=== PATIENT | male | born 1970 | race African-American/Black ===

== ENCOUNTER 2018-05-10 09:55 | Emergency (ER) | payer SELFPAY ==
[2018-05-10] MEDS ORDERED: ONDANSETRON HCL INJ/PF 4 MG/2 ML SDV IV ONE (10:17)
[2018-05-10] MEDS ORDERED: NORMAL SALINE 1000 ML 1,000 ML IV ONE (10:17)
[2018-05-10] MEDS ORDERED: FENTANYL CITRATE INJ/PF 100 MCG/2 ML AMPUL IV ONE (10:17)
[2018-05-10] MEDS ORDERED: KETOROLAC TROMETHAMINE INJ/PF 30 MG/1 ML SDV IV ONE (10:17)
[2018-05-10] MEDS ORDERED: CLONIDINE HCL 0.2 MG TABLET PO ONE (10:19)
--- NOTE | 2018-05-10 10:20 | ER Document Report ---
ED Medical Screen (RME) - General Chief Complaint: Abdominal Pain Stated Complaint: STOMACH PAIN Time Seen by Provider: 05/10/18 10:17 Notes: 48 years old male presents today with elevated blood pressure, left lower quadrant abdominal pain for the last few days, hematuria and lower GI bleed. This morning the pain over the left lower quadrant has increased in intensity. He also had hematuria for the last few days, awaiting urology appointment. Denies any fever chills but nauseous. Denies any other constitutional symptoms. Sharp tenderness over the left lower quadrant. TRAVEL OUTSIDE OF THE [place] IN LAST 30 DAYS: No - Related Data Allergies/Adverse Reactions: No Known Allergies Allergy (Unverified 05/10/18 09:56) Past Medical History - Social History Chew tobacco use (# tins/day): No Frequency of alcohol use: None Drug Abuse: None Renal/ Medical History: Denies: Hx Peritoneal Dialysis Physical Exam - Vital signs Vitals: Temp Pulse Resp BP Pulse Ox 98.0 F 69 18 177/108 H 98 05/10/18 09:57 05/10/18 09:57 05/10/18 09:57 05/10/18 09:57 05/10/18 09:57 Course - Vital Signs Vital signs: Temp Pulse Resp BP Pulse Ox 98.0 F 69 18 177/108 H 98 05/10/18 09:57 05/10/18 09:57 05/10/18 10:14 05/10/18 09:57 05/10/18 09:57 Doctor's Discharge - Discharge Referrals: DALIA MARTINEZ MD [Primary Care Provider] - Follow up as needed
[2018-05-10 10:47] LABS: APPEARANCE,URINE CLEAR; BILIRUBIN,URINE NEGATIVE (NEGATIVE); COLOR,URINE YELLOW; GLUCOSE, URINE NEGATIVE (NEGATIVE); KETONES,URINE NEGATIVE (NEGATIVE); LEUKOCYTE ESTERASE,URINE NEGATIVE (NEGATIVE); NITRITE,URINE NEGATIVE (NEGATIVE); PROTEIN,URINE NEGATIVE (NEGATIVE); URINE SPECIFIC GRAVITY 1.014; UROBILINOGEN,URINE NEGATIVE mg/dL (<2.0)
[2018-05-10 11:55] LABS: ABSOLUTE BASOPHILS # (AUTO) 0.1 10^3/uL (0.0-0.2); ABSOLUTE EOSINOPHILS # (AUTO) 0.3 10^3/uL (0.0-0.6); ABSOLUTE LYMPHOCYTES (AUTO) 1.3 10^3/uL (0.5-4.7); ABSOLUTE MONOCYTES (AUTO) 0.8 10^3/uL (0.1-1.4); ABSOLUTE NEUT (AUTO) 12.1 10^3/uL (1.7-8.2); BASOPHILS % (AUTO) 0.8 % (0-2); EOSINOPHILS % (AUTO) 1.9 % (0-6); HEMOGLOBIN 15.2 g/dL (13.5-17.0); LYMPHOCYTES % (AUTO) 8.8 % (13-45); MEAN CORPUSCULAR HEMOGLOBIN 26.7 pg (27.0-33.4); MEAN CORPUSCULAR HGB CONC 33.7 g/dL (32.0-36.0); MEAN CORPUSCULAR VOLUME 79 fl (80-97); MONOCYTES % (AUTO) 5.8 % (3-13); PLATELET COUNT 145 10^3/uL (150-450); RED BLOOD COUNT 5.69 10^6/uL (4.35-5.55); RED CELL DISTRIBUTION WIDTH 13.4 % (11.5-14.0); SEGMENTED NEUTROPHILS % (AUTO) 82.7 % (42-78); TOTAL CELLS COUNTED % (AUTO) 100 %; WHITE BLOOD COUNT 14.6 10^3/uL (4.0-10.5)
[2018-05-10 12:01] LABS: ALANINE AMINOTRANSFERASE 59 U/L (21-72); ALKALINE PHOSPHATASE 100 U/L (38-126); ANION GAP 13 (5-19); ASPARTATE AMINO TRANSFERASE 36 U/L (17-59); BILIRUBIN,DIRECT 0.3 mg/dL (0.0-0.4); BILIRUBIN,TOTAL 0.5 mg/dL (0.2-1.3); BLOOD UREA NITROGEN 16 mg/dL (7-20); CARBON DIOXIDE 29 mmol/L (22-30); CHLORIDE 101 mmol/L (98-107); GLUCOSE 114 mg/dL (75-110); LIPASE 196.7 U/L (23-300); POTASSIUM 4.2 mmol/L (3.6-5.0); SODIUM 143.3 mmol/L (137-145)
--- NOTE | 2018-05-10 13:42 | RADIOLOGY REPORT (SQ) ---
EXAM DESCRIPTION: CT ABD/PELVIS WITH IV ORAL COMPLETED DATE/TIME: 05/10/2018 1:19 pm REASON FOR STUDY: Lower GI bleed .LLQpain r/o diverticular abscess. COMPARISON: None. TECHNIQUE: CT scan of the abdomen and pelvis performed with intravenous and oral contrast using aziza aleks scanning technique with dynamic intravenous contrast injection. Images reviewed with lung, soft t issue, and bone windows. Reconstructed coronal and sagittal MPR images reviewed. Delayed images for e valuation of the urinary system also acquired. All images stored on PACS. All CT scanners at this facility use dose modulation, iterative reconstruction, and/or weight based d osing when appropriate to reduce radiation dose to as low as reasonably achievable (ALARA). [facility]: Dose Right [facility]: CareDose [facility]: Dose Right [facility]: Teradose 4D [facility]: Red Zebra CONTRAST TYPE AND DOSE: contrast/concentration: Isovue 350.00 mg/ml; Total Contrast Delivered: 75.0 ml; Total Saline Delivered: 55.0 ml RENAL FUNCTION: Creatinine 1.27 RADIATION DOSE: CT Rad equipment meets quality standard of care and radiation dose reduction techniq ues were employed. CTDIvol: 10.6 - 12.4 mGy. DLP: 1339 mGy-cm. . LIMITATIONS: None. FINDINGS: LOWER CHEST: No significant findings. No nodules or infiltrates. LIVER: Normal size. No masses. No dilated ducts. There is fatty infiltration of the liver. SPLEEN: Normal size. No focal lesions. PANCREAS: No masses. No significant calcifications. No adjacent inflammation or peripancreatic fluid collections. Pancreatic duct not dilated. GALLBLADDER: No identified stones by CT criteria. No inflammatory changes to suggest cholecystitis. ADRENAL GLANDS: No significant masses or asymmetry. RIGHT KIDNEY AND URETER: No solid masses. No significant calcifications. No hydronephrosis or hyd roureter. LEFT KIDNEY AND URETER: No solid masses. No significant calcifications. No hydronephrosis or hydr oureter. AORTA AND VESSELS: No aneurysm. No dissection. Renal arteries, SMA, celiac without stenosis. RETROPERITONEUM: No retroperitoneal adenopathy, hemorrhage or masses. BOWEL AND PERITONEAL CAVITY: No obstruction. No visualized masses. No free fluid. No inflammatory ch anges or thickening of bowel wall. APPENDIX: Normal. PELVIS: No significant masses. Normal bladder. No free fluid. ABDOMINAL WALL: No masses. No hernias. BONES: No significant or acute findings. OTHER: No other significant finding. IMPRESSION: NO SIGNIFICANT OR ACUTE FINDINGS IN THE ABDOMEN OR PELVIS. TECHNICAL DOCUMENTATION: JOB ID: [id number] Quality ID # [id number]: Final reports with documentation of one or more dose reduction techniques (e.g., Au tomated exposure control, adjustment of the mA and/or kV according to patient size, use of iterative reconstruction technique) 2010 [employer]- All Rights Reserved Reading location - IP/workstation name: [email or web address]
--- NOTE | 2018-05-10 14:27 | ER Document Report ---
ED GI/ - General Chief Complaint: Abdominal Pain Stated Complaint: STOMACH PAIN Time Seen by Provider: 05/10/18 10:17 Notes: Patient says he was awakened about 4:30 AM this morning with a very sharp pain in his left lower quadrant. He is never had this pain before. Patient says he was having severe pain when he arrived at the emergency department, but the pain resolved after he was given medications (Toradol and fentanyl IV) No history of kidney stones. Patient has had some blood in his stools and blood in his urine over the last couple of months. He has seen his primary care provider who is getting him referred to specialist to evaluate this blood. Patient says he has an appointment to see both a urologist and a intake clinician in May. No history of hemorrhoids. Denies any nausea or vomiting. Denies any fevers. TRAVEL OUTSIDE OF THE [place] IN LAST 30 DAYS: No - Related Data Allergies/Adverse Reactions: No Known Allergies Allergy (Unverified 05/10/18 09:56) Past Medical History - Social History Smoking Status: Current Every Day Smoker - 1 pack/day Chew tobacco use (# tins/day): No Frequency of alcohol use: None Drug Abuse: None Family History: Reviewed & Not Pertinent Patient has suicidal ideation: No Patient has homicidal ideation: No - Past Medical History Cardiac Medical History: Reports: Hx Hypertension - Currently not taking any medications but being followed by his primary care Review of Systems - Review of Systems Notes: REVIEW OF SYSTEMS: CONSTITUTIONAL : Denies fever. EENT: Denies eye, ear, nose or mouth or throat pain or other symptoms. CARDIOVASCULAR: Denies chest pain. RESPIRATORY: Denies cough, chest congestion, or shortness of breath. GASTROINTESTINAL: See HPI. GENITOURINARY: Denies difficulty or painful urinating, urinary frequency,. Having blood in urine which primary care provider is working up. MUSCULOSKELETAL: Denies back or neck pain. Denies joint pain or swelling. SKIN: Denies rash or skin lesions. NEUROLOGICAL: Denies LOC or altered mental status. Denies headache. Denies sensory loss or motor deficits. ALL OTHER SYSTEMS REVIEWED AND NEGATIVE. Physical Exam - Vital signs Vitals: Temp Pulse Resp BP Pulse Ox 98.0 F 69 18 177/108 H 98 05/10/18 09:57 05/10/18 09:57 05/10/18 09:57 05/10/18 09:57 05/10/18 09:57 Interpretation: Hypertensive - Mild Notes: PHYSICAL EXAMINATION: GENERAL: Well-appearing, in no acute distress. Patient says he was having a lot of pain when he came in to triage, and I do not see him at that time. HEAD: Atraumatic, normocephalic. EYES: Pupils equal round and reactive to light, extraocular movements intact. ENT: oropharynx clear without exudates. Moist mucous membranes. NECK: Normal range of motion, supple. LUNGS: Breath sounds clear and equal bilaterally. HEART: Regular rate and rhythm without murmurs. ABDOMEN: Soft, tender to deep palpation in the left lower quadrant, but no guarding or rebound. No masses. BACK: No tenderness throughout entire back. EXTREMITIES: Normal range of motion without pain. NEUROLOGICAL: Normal speech, normal gait. Normal sensory, motor, and reflex exams. Awake, alert, and oriented x3. Cranial nerves normal. PSYCH: Normal mood, normal affect. SKIN: Warm, dry, no rashes. Course - Re-evaluation Re-evalutation: 05/10/18 18:47 Patient's WBC is 14,600 but otherwise, patient's labs are all essentially normal. His CT scan is completely negative. I do not know if he may have had a small stone that was passing that has now passed and is no longer showing up on CT nor is it producing any blood in the urine. Patient's urine had 1 red cell and dipstick positive for blood and that is all. No evidence of any infection there. Even though his scan appears normal, there are occasions when it is not accurate and I am going to treat this patient with Flagyl and Cipro on the possibility that he may have an undetected colitis present. Patient was advised to follow-up with his primary care regarding his blood pressure and treatment of it. Keep his appointment with the 2 specialist that he has for May. - Vital Signs Vital signs: Temp Pulse Resp BP Pulse Ox 97.9 F 62 18 118/67 98 05/10/18 14:33 05/10/18 14:33 05/10/18 14:33 05/10/18 14:33 05/10/18 14:33 - Laboratory Result Diagrams: 05/10/18 10:30 05/10/18 10:30 Laboratory results interpreted by me: 1205/10/18 05/10/18 10:30 10:30 10:30 WBC 14.6 H RBC 5.69 H MCV 79 L MCH 26.7 L Plt Count 145 L Seg Neutrophils % 82.7 H Lymphocytes % 8.8 L Absolute Neutrophils 12.1 H Creatinine 1.27 H Glucose 114 H Urine Blood MODERATE H Discharge - Discharge Clinical Impression: Left lower quadrant abdominal pain of unknown etiology, Hypertension Condition: Stable Disposition: HOME, SELF-CARE Additional Instructions: ABDOMINAL PAIN: There are many causes of abdominal pain. Pain can mean a serious problem requiring surgery (such as appendicitis). It can also be an innocent problem that goes away on its own (such as a viral infection). Often, time must pass to determine the cause of pain. The physician does not feel that hospitalization is necessary, at present. Things may change within the next 24 hours. Call the doctor or come back for re- examination if any problems occur, such as: (1) Pain that becomes more severe, steady, or becomes concentrated in one specific area. Also, pain that is more severe with movement or coughing. (2) Vomiting that persists or becomes more frequent. (3) Blood in the vomitus, urine, or bowel movements. Blood in the stool may have a tarry or black appearance. (4) Shaking chills or fever greater than 100 degrees F. (5) The abdomen becomes more distended or swollen. (6) Bowel movements cease. (7) Failure to improve as expected. Leukocytosis Leukocytosis is an elevation or increase in the number of white blood cells. Nearly all leukocytosis is due to one type of white blood cell, the polymorphonuclear leukocyte (PMN). These conditions are more accurately referred to as neutrophilia. The most common and important cause of neutrophilia is infection, and most infections cause neutrophilia. The degree of elevation often indicates the severity of the infection. Tissue damage from other causes raises the white count for similar reasons. [place], infarction (cutting off the blood supply to a region of the body so that it dies), crush injuries, inflammatory diseases, poisonings, and severe diseases, like kidney failure and diabetic ketoacidosis, all cause neutrophilia. Counts almost as high occur in leukemoid (leukemia-like) reactions caused by infection and non-infectious inflammation. Drugs can also cause leukocytosis. Cortisone-like drugs prednisone, lithium , and NSAIDs are the most common offenders. Non-specific stresses also cause white blood cells to increase in the blood. Extensive testing of medical students reveals that neutrophilia accompanies every examination. Vigorous exercise and intense excitement also cause elevated white blood cell counts. Except for your slightly elevated white cell count, called leukocytosis, you have a NORMAL EXAM AND WORKUP: At this time, your examination and workup show no significant abnormality. No significant abnormal physical findings are noted. All laboratory, EKG, and imaging (x-ray, CT scans, ultrasound) studies that were ordered show no significant abnormality. Although your examination and all studies that were ordered showed no significant abnormal finding, there are no examinations and no studies that are 100% accurate. There is always the possibility that some abnormality could exist and not be detected with physical examination or within the limits and capabilities of laboratory and other studies. You should return or follow up as you were instructed on your visit today for further evaluation if your symptoms do not resolve. TORADOL INJECTION: You have been given an injection of ketorolac tromethamine (Toradol). This is an excellent, safe drug for pain control. It also has potent antiinflammatory action. You should have significant pain relief within about one hour. Toradol is not addicting and is non-sedating. It does not interfere with driving or work. Call or return if you develop itching, hives, shortness of breath, or rash. PAIN MEDICATION INJECTION: You have received an injection of a pain medication. You should experience significant pain relief within 45 minutes. This drug is a narcotic - - it will impair your judgement, slow your reaction time and make you sleepy ( as well as relieve your pain). Narcotics also can cause nausea. You should not drive, work with machinery, or perform any task requiring mental alertness until all effects of the medication are gone -- six to eight hours. Do not take any alcohol, or sedatives, and do not take any other medication without checking with your physician. ANTINAUSEA MEDICATION: You have been given a medication to suppress nausea and vomiting. This type of medication can be given as a shot, pill, or suppository. It will usually last for many hours. Pills and shots usually last six to eight hours, suppositories last about 12 hours. For the typical illness, only one or two doses of the medication may be necessary. Mild lightheadedness may occur. This type of medicine can cause drowsiness. Do not drive or operate dangerous machinery while under its influence. Do not mix with alcohol. See your doctor at once if you have muscle spasms or tightness, or uncontrollable motions (particularly of the neck, mouth, or jaw). Persistent vomiting or severe lightheadedness should also be evaluated by the physician. ORAL NARCOTIC MEDICATION: You have been given a prescription for pain control. This medication is a narcotic. It's best taken with food, as nausea can result if taken on an empty stomach. Don't operate machinery or drive within six hours of taking this medication. Do not combine this medicine with alcohol, or with any medication which can cause sedation (such as cold tablets or sleeping pills) unless you get permission from the physician. Narcotics tend to cause constipation. If possible, drink plenty of fluids and eat a diet high in fiber and fruits. Please be aware that prescription narcotics also have the potential for abuse. People become addicted to these medications because of the general sense of wellbeing that they induce. This feeling along with a significant reduction in tension, anxiety, and aggression provides a stimulating seductive quality to these drugs. Once your pain is under control, we encourage you to discard your unused narcotics. You may have colitis, Nonspecific Colitis is an inflammatory disease of the large intestine which affects the lining of the bowel. The cause is uncertain, though it is often caused by an infection. In some cases, the symptoms resolve and can return again in the future. Colitis is characterized by abdominal pain, often nausea and vomiting, and either diarrhea or difficulty with bowel movements. Sometimes blood will be present in the bowel movements. Fever is often present as well. Milder cases of colitis can be managed as an outpatient with medications for nausea and vomiting and pain, oral fluid therapy, and perhaps antibiotics, if a bacterial origin is suspected. Antidiarrhea medicine should usually be avoided in colitis. If you have increasing abdominal pain, repeated vomiting, fever, rectal bleeding, or worsening diarrhea, you should return for re-evaluation. Ciprofloxacin You have been given an antibacterial agent, ciprofloxacin (Cipro). This medicine is not related to the penicillins, sulfas, cephalosporins, or tetracyclines. It is often given to patients who are allergic to these drugs. It has been chosen for you either because other drugs are not appropriate, or because of the nature of your problem. Cipro should not be taken with antacids, as these can decrease its effectiveness. It can be taken without regard to meals. CIPRO SHOULD NOT BE TAKEN BY CHILDREN, NURSING WOMEN, OR WOMEN. Although Cipro is usually well-tolerated, common side effects can include nausea and diarrhea. Contact your doctor if you experience any unusual symptoms while on this medication, such as joint pain or swelling, shortness of breath, wheezing, faintness, or hives. Metronidazole Metronidazole (Flagyl) has been prescribed. This medication is used to kill a type of bacteria called anaerobes, and protozoan parasites such as trichomonas and Giardia. Flagyl often causes a metallic taste in the mouth and mild nausea. Do not use alcohol in any form with Flagyl (including alcohol in medication elixirs). Flagyl interacts with alcohol to cause flushing, palpitations, headache, stomach cramps, and vomiting. Do not use Flagyl if you are taking Antabuse (disulfiram). Call the doctor at once if you develop rash, shortness of breath, itching, or lightheadedness. FOLLOW-UP CARE: If you have been referred to a physician for follow-up care, call the physician s office for an appointment as you were instructed or within the next two days. If you experience worsening or a significant change in your symptoms, notify the physician immediately or return to the Emergency Department at any time for re-evaluation. Continue to see your primary care provider at [facility] to monitor and treat her blood pressure. Make sure you keep your appointment to see the intake clinician and urologist in May, as scheduled, about the blood in your stools and blood in your urine Return if you have new or worsening symptoms., Such as worsening pain, fever, etc. Prescriptions: Ciprofloxacin HCl [Cipro 500 mg Tablet] 500 mg PO BID #14 tablet Metronidazole [Flagyl 500 mg Tablet] 500 mg PO BID #14 tablet Oxycodone HCl/Acetaminophen [Percocet 5-325 mg Tablet] 1 - 2 tab PO Q4H PRN #10 tablet PRN Reason: Forms: Return to Work Referrals: DALIA MARTINEZ MD [EMERITUS] - Follow up as needed
[2018-05-10 14:35] VITALS: BP 118/67
== END 2018-05-10 14:35 | disposition home or self-care (01) ==
LOC: ER 09:55
DX: R10.32 Left lower quadrant pain (principal); I10 Essential (primary) hypertension; K92.1 Melena; R31.9 Hematuria, unspecified; F17.200 Nicotine dependence, unspecified, uncomplicated
CPT/HCPCS: 99284; 96361; 96374; 96375; 36415; 83690; 85025; 80053; 81001; 74177; J3010; J1885; J2405; J7030

== ENCOUNTER 2018-05-13 03:21 | Emergency (ER) | payer OTHER ==
[2018-05-13] MEDS ORDERED: KETOROLAC TROMETHAMINE INJ/PF 30 MG/1 ML SDV IV ONE (03:49)
[2018-05-13] MEDS ORDERED: ONDANSETRON HCL INJ/PF 4 MG/2 ML SDV IV ONE (04:31)
[2018-05-13] MEDS ORDERED: POLYETHYLENE GLYCOL 3350 POWDER 17 GM/1 PACKET PO ONE (04:31)
--- NOTE | 2018-05-13 04:32 | RADIOLOGY REPORT (SQ) ---
EXAM DESCRIPTION: XR ABDOMEN SUPINE AND ERECT WITH CHEST (ABD ACUTE SERIES) COMPLETED DATE/TME: 05/13/2018 03:49 CLINICAL HISTORY: 48 years, Male, abdominal pain COMPARISON: None. NUMBER OF VIEWS: 4 TECHNIQUE: Upright chest with supine and erect views of the abdomen LIMITATIONS: None. FINDINGS: Heart size is normal. Lungs are clear. No pneumothorax. Nonspecific, nonobstructive bowel gas pattern. Residual contrast within bowel. No free air. IMPRESSION: Negative chest. Nonspecific bowel gas pattern. Residual contrast in bowel copyright 2010 [employer]- All Rights Reserved
[2018-05-13] MEDS ORDERED: PREGABALIN 25 MG CAPSULE PO ONE (04:39)
--- NOTE | 2018-05-13 04:41 | ER Document Report ---
ED General - General Chief Complaint: Abdominal Pain Stated Complaint: FLANK PAIN Time Seen by Provider: 05/13/18 03:34 Notes: Patient is a 48-year-old male who presents to the ER with complaint of left- sided flank and abdominal pain with pressure into his left back. He says he feels a burning sensation that radiates from his left back around his left flank into the left lower quadrant. No pain or burning with urination. He said several weeks ago he did have small amount of blood in his urine which has since cleared. He also had small amount of blood in his stool which has since cleared. He was seen here on the and had a CT scan and blood work performed. CT scan did not show acute abnormalities. At that time the physician felt that since the patient had some left lower quadrant pain there is a possibly could have underlying colitis and therefore placed him on Cipro and Flagyl. Patient says his medication has not helped him. He was also placed on Percocet and since starting the Percocet he has been unable to have a bowel movement and says he feels very constipated. He has some nausea but no vomiting. No fevers. He has seen his primary care doctor about the symptoms as they have been ongoing now for a month. His primary care doctor is arranged for him to see urologist as well as a GI physician in May. Patient does have a history of back problems. 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 He does admit that sometimes certain movements or twisting does make the pain worse and the burning radiating around the left flank worse. No leg pain or leg weakness. No loss of bowel control. TRAVEL OUTSIDE OF THE [place] IN LAST 30 DAYS: No - Related Data Allergies/Adverse Reactions: No Known Allergies Allergy (Unverified 05/10/18 09:56) Past Medical History - Social History Smoking Status: Never Smoker Frequency of alcohol use: None Drug Abuse: None Family History: Reviewed & Not Pertinent - Past Medical History Cardiac Medical History: Reports: Hx Hypertension - Currently not taking any medications but being followed by his primary care Renal/ Medical History: Denies: Hx Peritoneal Dialysis Review of Systems - Review of Systems Notes: My Normal Review Basic REVIEW OF SYSTEMS: CONSTITUTIONAL : Denies fever, chills, or sweats. Denies recent illness. EENT: Denies eye, ear, throat, or mouth pain or symptoms. Denies nasal or sinus congestion. CARDIOVASCULAR: Denies chest pain. RESPIRATORY: Denies cough, cold, or chest congestion. Denies shortness of breath, difficulty breathing, or wheezing. GASTROINTESTINAL: Some burning sensation rating around left flank into the left lower quadrant. Some nausea. No vomiting. GENITOURINARY: Had some hematuria a week ago but this has since resolved. MUSCULOSKELETAL: Back pain. Left-sided flank pain. SKIN: Denies rash or skin lesions. NEUROLOGICAL: Denies altered mental status or loss of consciousness. Denies headache. Denies weakness or paralysis or loss of use of either side. Denies problems with gait or speech. Denies sensory or motor loss. ALL OTHER SYSTEMS REVIEWED AND NEGATIVE. Physical Exam - Vital signs Vitals: Temp Pulse Resp BP Pulse Ox 98.2 F 90 18 168/116 H 98 05/13/18 03:26 05/13/18 03:26 05/13/18 03:26 05/13/18 03:26 05/13/18 03:26 - Notes Notes: General Appearance: Well nourished, alert, cooperative, no acute distress, moderate obvious discomfort. Vitals: reviewed, See vital signs table. Head: no swelling or tenderness to the head Eyes: PERRL, EOMI, Conjuctiva clear Mouth: No decreasd moisture Lungs: No wheezing, No rales, No rhonci, No accessory muscle use, good air exchange bilaterally. Heart: Normal rate, Regular rythm, No murmur, no rub Abdomen: Normal BS, soft, No rigidity, no pain to palpation of left lower quadrant of the abdomen. No pain is reproducible to palpation of the abdomen. Genital exam: Very slight soreness just above the left testicle. No redness or swelling. No inguinal hernia on exam. Back: No pain palpation of lower back. No redness or swelling to the back. No evidence of shingles-like rash. Extremities: strength 5/5 in all extremities, good pulses in all extremities, no swelling or tenderness in the extremities, no edema. Skin: warm, dry, appropriate color, no rash Neuro: speech clear, oriented x 3, normal affect, responds appropriately to questions. Course - Re-evaluation Re-evalutation: 05/13/18 06:55 His laboratory evaluation is unremarkable. He just had a CT scan 3 days ago which was negative for hydronephrosis and negative for any acute intra- abdominal pathology. His pain radiates from his back around the left flank and is a burning type sensation in his pain is not reproducible with palpation. This suggests that it could potentially be a pinched nerve coming from his back. I suspect this is what is causing his pain. I will start him on Lyrica. Home follow-up with his doctor. Often discussed with his doctor whether or not a outpatient MRI would be appropriate. I encouraged him to keep his appointments with urology and GI being that week ago he did have some blood in stool and also in his urine. He tells me that the blood in his urine is actually related to the fact that one time when he was having sex he had blood when he ejaculated. Since then this is stopped occurring. He did have some slight soreness but left testicle. Ultrasound was performed and is negative. Encourage patient keep his appointments with specialist. He is to follow-up with his primary care doctor this week for reevaluation and to discuss further workup and treatment options. Patient agrees with plan and will be discharged home. I also encouraged him to stop taking the Percocet as it is making him very constipated and will place him on MiraLAX to help him start having bowel movements as he has not had one in several days now. She is to return to ER if he has fevers, worsening pain, vomiting, bloody stools, or if he feels unwell. Patient agrees with plan and will be discharged home. Dictation of this chart was performed using voice recognition software; therefore, there may be some unintended grammatical errors. - Vital Signs Vital signs: Temp Pulse Resp BP Pulse Ox 98.2 F 90 18 155/99 H 98 05/13/18 03:26 05/13/18 03:26 05/13/18 03:26 05/13/18 06:06 05/13/18 03:26 - Laboratory Result Diagrams: 05/13/18 04:33 05/13/18 04:33 Laboratory results interpreted by me: 05/13/18 05/13/18 04:33 04:33 WBC 12.3 H RBC 5.66 H MCV 78 L MCH 26.7 L Absolute Neutrophils 8.9 H Urine Blood MODERATE H Ur Leukocyte Esterase TRACE H Discharge - Discharge Clinical Impression: Left flank pain Back pain Qualifiers: Back pain location: low back pain Chronicity: unspecified Back pain laterality : left Sciatica presence: without sciatica Qualified Code(s): M54.5 - Low back pain Condition: Good Disposition: HOME, SELF-CARE Additional Instructions: Please follow-up closely with your primary care doctor. Please discuss with him the possibility that this could be a pinched nerve from your back and discuss with him about having an outpatient MRI performed. Please follow-up with the GI and urology specialist as scheduled. Please start taking the Lyrica. We will start at a low dose and then your doctor can slowly increase it to effect. Please take the MiraLAX to try to have bowel movements. Please stop taking the Percocet as the oxycodone will likely cause you to become more constipated. Be careful with stopping the Percocet all at once as sometimes you can have some withdrawal symptoms so consider taking half a tablet every 8 hours for the next 24 hours and then decreasing to half a tablet every 12 hours for 2 days after that. Please return to the ER immediately if you have worsening pain, fevers, vomiting, bloody stools, or feel unwell. Prescriptions: Polyethylene Glycol 3350 [Miralax] 1 cap PO DAILY #527 powder Pregabalin [Lyrica 25 Mg Capsule] 25 mg PO TID #21 capsule Forms: Return to Work
[2018-05-13 04:54] LABS: ABSOLUTE BASOPHILS # (AUTO) 0.1 10^3/uL (0.0-0.2); ABSOLUTE EOSINOPHILS # (AUTO) 0.5 10^3/uL (0.0-0.6); ABSOLUTE LYMPHOCYTES (AUTO) 1.8 10^3/uL (0.5-4.7); ABSOLUTE MONOCYTES (AUTO) 1.1 10^3/uL (0.1-1.4); ABSOLUTE NEUT (AUTO) 8.9 10^3/uL (1.7-8.2); BASOPHILS % (AUTO) 0.7 % (0-2); EOSINOPHILS % (AUTO) 3.7 % (0-6); HEMATOCRIT 43.9 % (37.9-51.0); HEMOGLOBIN 15.1 g/dL (13.5-17.0); LYMPHOCYTES % (AUTO) 14.8 % (13-45); MEAN CORPUSCULAR HEMOGLOBIN 26.7 pg (27.0-33.4); MEAN CORPUSCULAR HGB CONC 34.5 g/dL (32.0-36.0); MEAN CORPUSCULAR VOLUME 78 fl (80-97); MONOCYTES % (AUTO) 8.7 % (3-13); PLATELET COUNT 169 10^3/uL (150-450); RED BLOOD COUNT 5.66 10^6/uL (4.35-5.55); RED CELL DISTRIBUTION WIDTH 13.2 % (11.5-14.0); SEGMENTED NEUTROPHILS % (AUTO) 72.1 % (42-78); TOTAL CELLS COUNTED % (AUTO) 100 %; WHITE BLOOD COUNT 12.3 10^3/uL (4.0-10.5)
[2018-05-13 05:04] LABS: APPEARANCE,URINE CLEAR; BILIRUBIN,URINE NEGATIVE (NEGATIVE); COLOR,URINE YELLOW; GLUCOSE, URINE NEGATIVE (NEGATIVE); KETONES,URINE NEGATIVE (NEGATIVE); LEUKOCYTE ESTERASE,URINE TRACE (NEGATIVE); NITRITE,URINE NEGATIVE (NEGATIVE); PROTEIN,URINE NEGATIVE (NEGATIVE); UROBILINOGEN,URINE NEGATIVE mg/dL (<2.0)
[2018-05-13 05:05] LABS: ALANINE AMINOTRANSFERASE 35 U/L (21-72); ALBUMIN 4.5 g/dL (3.5-5.0); ALKALINE PHOSPHATASE 84 U/L (38-126); ANION GAP 10 (5-19); ASPARTATE AMINO TRANSFERASE 24 U/L (17-59); BILIRUBIN,DIRECT 0.3 mg/dL (0.0-0.4); BILIRUBIN,TOTAL 0.7 mg/dL (0.2-1.3); BLOOD UREA NITROGEN 13 mg/dL (7-20); CALCIUM 9.8 mg/dL (8.4-10.2); CARBON DIOXIDE 27 mmol/L (22-30); CHLORIDE 104 mmol/L (98-107); GLUCOSE 106 mg/dL (75-110); POTASSIUM 3.8 mmol/L (3.6-5.0); SODIUM 141.4 mmol/L (137-145); TOTAL PROTEIN 7.2 g/dL (6.3-8.2)
[2018-05-13] MEDS ORDERED: HYDROCHLOROTHIAZIDE 25 MG TABLET PO ONE (05:37)
--- NOTE | 2018-05-13 06:15 | RADIOLOGY REPORT (SQ) ---
EXAM DESCRIPTION: US SCROTUM COMPLETED DATE/TME: 05/13/2018 05:35 CLINICAL HISTORY: 48 years, Male, discomfort COMPARISON: None. TECHNIQUE: Transverse and longitudinal sonographic images of the testes LIMITATIONS: None. FINDINGS: The right testicle measures 4.2 x 1.9 x 4.0 cm. The left testicle measures 4.2 x 2.0 x 2.9 cm. Doppler and spectral analysis with color flow was utilized. Arterial and venous flow to both testes. The epididymides are unremarkable. Negative for intratesticular mass. IMPRESSION: Unremarkable exam copyright 2010 [employer]- All Rights Reserved
[2018-05-13 07:15] VITALS: BP 153/100
== END 2018-05-13 07:15 | disposition home or self-care (01) ==
LOC: ER 03:21
DX: K59.03 Drug induced constipation (principal); T40.695A Adverse effect of other narcotics, initial encounter; R10.9 Unspecified abdominal pain; M54.5 Low back pain; R20.8 Other disturbances of skin sensation; R11.0 Nausea; I10 Essential (primary) hypertension
CPT/HCPCS: 99284; 96374; 96375; 36415; 85025; 80053; 81001; 74022; 76870; 93976; J3490 ×2; J1885; J2405

== ENCOUNTER 2018-05-16 21:34 | Emergency (ER) | payer OTHER ==
[2018-05-16] MEDS ORDERED: HYDROMORPHONE HCL INJ/PF 2 MG/ML AMPULE IV ONE (22:43)
[2018-05-16] MEDS ORDERED: AMLODIPINE BESYLATE 10 MG TABLET PO ONE (22:44)
[2018-05-16] MEDS ORDERED: ONDANSETRON HCL INJ/PF 4 MG/2 ML SDV IV ONE (22:44)
--- NOTE | 2018-05-16 23:11 | RADIOLOGY REPORT (SQ) ---
EXAM DESCRIPTION: XR CHEST 1 VIEW COMPLETED DATE/TME: 05/16/2018 22:43 CLINICAL HISTORY: 48 years Male, cp COMPARISON: None. NUMBER OF VIEWS/TECHNIQUE: 1/AP FINDINGS: Adequate lung volume, clear parenchyma, normal cardiac silhouette, and intact bony thorax. IMPRESSION: No acute cardiopulmonary findings.
[2018-05-17 00:01] LABS: ALANINE AMINOTRANSFERASE 31 U/L (21-72); ALBUMIN 4.3 g/dL (3.5-5.0); ALKALINE PHOSPHATASE 92 U/L (38-126); ANION GAP 8 (5-19); ASPARTATE AMINO TRANSFERASE 25 U/L (17-59); BILIRUBIN,DIRECT 0.2 mg/dL (0.0-0.4); BILIRUBIN,TOTAL 0.3 mg/dL (0.2-1.3); BLOOD UREA NITROGEN 18 mg/dL (7-20); CALCIUM 9.7 mg/dL (8.4-10.2); CARBON DIOXIDE 28 mmol/L (22-30); CHLORIDE 105 mmol/L (98-107); CREATINE KINASE 65 U/L (55-170); GLUCOSE 84 mg/dL (75-110); POTASSIUM 4.1 mmol/L (3.6-5.0); SODIUM 141.2 mmol/L (137-145); TOTAL PROTEIN 7.1 g/dL (6.3-8.2)
[2018-05-17 00:04] LABS: ABSOLUTE BASOPHILS # (AUTO) 0.1 10^3/uL (0.0-0.2); ABSOLUTE EOSINOPHILS # (AUTO) 0.8 10^3/uL (0.0-0.6); ABSOLUTE LYMPHOCYTES (AUTO) 2.7 10^3/uL (0.5-4.7); ABSOLUTE MONOCYTES (AUTO) 0.9 10^3/uL (0.1-1.4); ABSOLUTE NEUT (AUTO) 7.6 10^3/uL (1.7-8.2); EOSINOPHILS % (AUTO) 6.6 % (0-6); HEMOGLOBIN 15.1 g/dL (13.5-17.0); MEAN CORPUSCULAR HEMOGLOBIN 26.9 pg (27.0-33.4); MEAN CORPUSCULAR HGB CONC 34.4 g/dL (32.0-36.0); MEAN CORPUSCULAR VOLUME 78 fl (80-97); MONOCYTES % (AUTO) 7.1 % (3-13); PLATELET COUNT 181 10^3/uL (150-450); RED BLOOD COUNT 5.61 10^6/uL (4.35-5.55); RED CELL DISTRIBUTION WIDTH 13.4 % (11.5-14.0); SEGMENTED NEUTROPHILS % (AUTO) 63.3 % (42-78); TOTAL CELLS COUNTED % (AUTO) 100 %; WHITE BLOOD COUNT 12.1 10^3/uL (4.0-10.5)
[2018-05-17 00:14] LABS: CREATINE KINASE MB < 0.22 ng/mL (<4.55); TROPONIN I < 0.012 ng/mL
[2018-05-17] MEDS ORDERED: KETOROLAC TROMETHAMINE INJ/PF 30 MG/1 ML SDV IV ONE (01:04)
--- NOTE | 2018-05-17 01:09 | ER Document Report ---
ED General - General Chief Complaint: Flank Pain Stated Complaint: FLANK PAIN Time Seen by Provider: 05/16/18 22:33 Mode of Arrival: Ambulatory Information source: Patient Notes: This is a 48-year-old man with a history of hypertension (on no medicines at this time) who presents to the emergency room with low back pain. Patient states this is his third ER visit. He states that he has had a long history of back issues but proximately a week ago started having significant low back pain. He initially came to the emergency room and was told he might have a kidney stone and had a CT of his abdomen. Head CT did not show any kidney stones and he was treated conservatively and discharged. He returned and had a subsequent ultrasound of the testicles which showed no torsion. He denies any fever. The patient is an officer. He denies any drug use/IV drug use. He denies any history of diabetes. He denies any injections to the back. He denies any recent febrile illnesses. Patient denies any sensory disturbance to the saddle area, he denies any urinary retention or lower loss of urine or bowel function. TRAVEL OUTSIDE OF THE [place] IN LAST 30 DAYS: No - HPI Onset: Last week Onset/Duration: Sudden Quality of pain: Dull Severity: Moderate Pain Level: 2 Associated symptoms: denies: Chest pain, Fever, Shortness of breath Exacerbated by: Movement Relieved by: Denies Similar symptoms previously: Yes Recently seen / treated by doctor: Yes - Related Data Allergies/Adverse Reactions: No Known Allergies Allergy (Unverified 05/10/18 09:56) Past Medical History - General Information source: Patient - Social History Smoking Status: Current Every Day Smoker Cigarette use (# per day): Yes - Half a pack per day Chew tobacco use (# tins/day): No Frequency of alcohol use: None Drug Abuse: None Lives with: Family Family History: Reviewed & Not Pertinent Patient has suicidal ideation: No Patient has homicidal ideation: No - Past Medical History Cardiac Medical History: Reports: Hx Hypercholesterolemia, Hx Hypertension - Currently not taking any medications but being followed by his primary care Endocrine Medical History: Reports: None Renal/ Medical History: Reports: None. Denies: Hx Peritoneal Dialysis Malignancy Medical History: Reports None Musculoskeletal Medical History: Reports Other - Street of back problems in the past Psychiatric Medical History: Reports: None Surgical Hx: Negative Review of Systems - Review of Systems Constitutional: denies: Chills, Fever EENT: No symptoms reported Cardiovascular: denies: Chest pain, Palpitations, Heart racing Respiratory: denies: Cough, Short of breath, Wheezing Gastrointestinal: denies: Abdomen distended, Abdominal pain, Vomiting Genitourinary: No symptoms reported Male Genitourinary: No symptoms reported Musculoskeletal: See HPI, Back pain Skin: No symptoms reported Hematologic/Lymphatic: No symptoms reported Neurological/Psychological: denies: Weakness, Gait changes, Loss of power, Paralysis, Numbness Physical Exam - Vital signs Vitals: Temp Pulse Resp BP Pulse Ox 98.5 F 82 20 184/118 H 98 05/16/18 21:37 05/16/18 21:37 05/16/18 21:37 05/16/18 21:37 05/16/18 21:37 Notes: Physical exam: GENERAL: She is alert and oriented x3, complaining of lower back pain. Patient's blood pressure on arrival was 180/118. HEAD: Atraumatic, normocephalic. EYES: Pupils equal round and reactive to light, extraocular movements intact, sclera anicteric, conjunctiva are normal. ENT: TMs normal, nares patent, oropharynx clear without exudates. Moist mucous membranes. NECK: Normal range of motion, supple without obvious mass or JVD. LUNGS: Breath sounds clear to auscultation bilaterally and equal. No wheezes rales or rhonchi. HEART: Regular rate and rhythm without murmurs, rubs or gallops. ABDOMEN: Soft, normoactive bowel sounds. No tenderness to palpation. No guarding, no rebound. No pulsatile or other masses appreciated. Back: The cervical and thoracic and lumbar spine is nontender. Patient has a lot of tenderness in the left paraspinal sacral area. There is no skin changes, no erythema, no warmth or swelling in that area. But his tenderness is clearly over the bone. The CVA areas are nontender Testes: X2 without mass or tenderness Rectal: No perianal anesthesia, good rectal tone. EXTREMITIES: Normal range of motion, no pitting or edema. No clubbing or cyanosis. NEUROLOGICAL: Cranial nerves II through XII grossly intact. Motor 5/5, sensory grossly intact: No saddle anesthesia. Reflexes symmetrical, plantars downgoing, moving all extremities. PSYCH: Normal mood, normal affect. SKIN: Warm, Dry, normal turgor, no rashes or lesions noted. Course - Re-evaluation Re-evalutation: 05/17/18 01:10 Note: The patient really has significant lower left sacral tenderness to palpation. There is no motor loss to the lower extremities. There is no saddle anesthesia. He has good rectal tone. There is no CVA tenderness. His abdomen is soft and nontender and without any type of masses. I did review the previous CT scan which showed no abnormalities of the aorta. There was degenerative changes to the spine. Patient has been afebrile and his sed rate is normal. He was given medicine because he is hypertensive and he needs to be started on something which I will do. Patient should have follow-up with a primary care doctor and I will refer him to 1. We will give him some steroid Dosepak along with muscle relaxer for pain. I have recommended he use heating pads and get one at the pharmacy. 05/17/18 02:38 - Vital Signs Vital signs: Temp Pulse Resp BP Pulse Ox 98.5 F 82 25 H 184/118 H 95 05/16/18 21:37 05/16/18 21:37 05/17/18 02:01 05/16/18 21:37 05/17/18 02:01 - Laboratory Result Diagrams: 05/16/18 23:24 05/16/18 23:24 Laboratory results interpreted by me: 05/16/18 05/16/18 05/16/18 23:24 23:24 23:24 WBC 12.1 H RBC 5.61 H MCV 78 L MCH 26.9 L Eosinophils % 6.6 H Absolute Eosinophils 0.8 H ESR 18 H Creatinine 1.38 H Est GFR (Non-Af Amer) 55 L - EKG Interpretation by Me Rate: Normal Rhythm: NSR - EKG shows normal sinus rhythm with a ventricular rate of 63, there is evidence of LVH. Discharge - Discharge Clinical Impression: Acute back pain Condition: Stable Disposition: HOME, SELF-CARE Additional Instructions: Note: I prescribed Norvasc for your blood pressure. This is a first-line agent that is approved for blood pressure. It is on the $4 list at [facility]. For the back pain, I have prescribed a Medrol Dosepak. There is a coupon from [employer] for the Medrol Dosepak at [facility]. I have also prescribed a muscle relaxer and there is coupon as well from [facility] for [facility]. I do eventually want you to follow-up with a back specialist. You can get a referral to a back specialist by first going to primary care doctor (Dr. Reid hartman). Return to the emergency room for any loss of bowel or bladder function, numbness or weakness to the lower legs or any concerns or getting worse. Prescriptions: Amlodipine Besylate [Norvasc 10 mg Tablet] 10 mg PO DAILY #30 tablet Methocarbamol [Robaxin 500 mg Tablet] 500 mg PO BID #30 tablet Methylprednisolone [Medrol 4 mg Dosepack 21 Tab/Pack] 4 mg PO ASDIR PRN #21 tab.ds.[id number] PRN Reason: Forms: Return to Work Referrals: CRISTINA GANN MD [ACTIVE STAFF] - Follow up as needed (This is the number for the primary care doctor affiliated with this hospital: Call for the next available appointment for repeat blood pressure check)
[2018-05-17 02:38] LABS: APPEARANCE,URINE CLEAR; BILIRUBIN,URINE NEGATIVE (NEGATIVE); COLOR,URINE YELLOW; GLUCOSE, URINE NEGATIVE (NEGATIVE); KETONES,URINE NEGATIVE (NEGATIVE); LEUKOCYTE ESTERASE,URINE NEGATIVE (NEGATIVE); NITRITE,URINE NEGATIVE (NEGATIVE); PROTEIN,URINE NEGATIVE (NEGATIVE); URINE SPECIFIC GRAVITY 1.014; UROBILINOGEN,URINE NEGATIVE mg/dL (<2.0)
[2018-05-17 02:47] VITALS: BP 152/98
--- NOTE | 2018-05-17 07:42 | EKG REPORT ---
SEVERITY:- ABNORMAL ECG - SINUS RHYTHM PROBABLE LVH WITH SECONDARY REPOL ABNRM : Confirmed by: Pavan Pena MD 17-May-2018 07:41:57
== END 2018-05-17 02:47 | disposition home or self-care (01) ==
LOC: ER 21:34
DX: M47.9 Spondylosis, unspecified (principal); M54.5 Low back pain; I11.9 Hypertensive heart disease without heart failure; F17.210 Nicotine dependence, cigarettes, uncomplicated
CPT/HCPCS: 93005; 99284; 96374; 96375; 36415; 82553; 82550; 85025; 85652; 80053; 81001; 84484; 71045; 93010; J1885; J1170; J2405

== ENCOUNTER 2018-10-14 20:17 | Emergency (ER) | payer OTHER ==
--- NOTE | 2018-10-14 20:55 | ER Document Report ---
ED Medical Screen (RME) - General Chief Complaint: Flank Pain Stated Complaint: LEFT FLANK PAIN Time Seen by Provider: 10/14/18 20:48 Mode of Arrival: Ambulatory Information source: Patient Notes: Patient presents emergency department with complaints of left-sided flank pain for the past week. He denies problem be voiding. Denies history of kidney stones denies trauma. Denies fever vomiting diarrhea. Reports he had this pain in the past and they told him it was a muscle strain. Also complains of constipation. Reports last bowel movement was Monday. Reports he really had to strain to go. She also reports a history of high cholesterol and high blood pressure but does not take any medications for it. Patient offered Tylenol or Motrin for the pain and declined. I have greeted and performed a rapid initial assessment of this patient. A comprehensive ED assessment and evaluation of the patient, analysis of test results and completion of the medical decision making process will be conducted by additional ED providers. Dictation of this chart was performed using voice recognition software; therefore, there may be some unintended grammatical errors. TRAVEL OUTSIDE OF THE [place] IN LAST 30 DAYS: No - Related Data Allergies/Adverse Reactions: No Known Allergies Allergy (Unverified 05/10/18 09:56) Past Medical History - Past Medical History Cardiac Medical History: Reports: Hx Hypercholesterolemia, Hx Hypertension - Currently not taking any medications but being followed by his primary care Renal/ Medical History: Denies: Hx Peritoneal Dialysis Physical Exam - Vital signs Vitals: Temp Pulse Resp BP Pulse Ox 98.3 F 80 23 H 179/101 H 97 10/14/18 20:26 10/14/18 20:26 10/14/18 20:26 10/14/18 20:26 10/14/18 20:26 Course - Vital Signs Vital signs: Temp Pulse Resp BP Pulse Ox 98.3 F 80 23 H 179/101 H 97 10/14/18 20:26 10/14/18 20:26 10/14/18 20:26 10/14/18 20:26 10/14/18 20:26
[2018-10-14 21:27] LABS: APPEARANCE,URINE CLEAR; BILIRUBIN,URINE NEGATIVE (NEGATIVE); COLOR,URINE YELLOW; GLUCOSE, URINE NEGATIVE (NEGATIVE); KETONES,URINE NEGATIVE (NEGATIVE); LEUKOCYTE ESTERASE,URINE NEGATIVE (NEGATIVE); NITRITE,URINE NEGATIVE (NEGATIVE); PROTEIN,URINE NEGATIVE (NEGATIVE); URINE SPECIFIC GRAVITY 1.016; UROBILINOGEN,URINE NEGATIVE mg/dL (<2.0)
--- NOTE | 2018-10-14 22:14 | RADIOLOGY REPORT (SQ) ---
XR ABDOMEN 1 VIEW (KUB) HISTORY: Constipation, left side pain. COMPARISON: None. FINDINGS: There is a nonobstructive bowel gas pattern. No abnormal soft tissue calcifications are seen. There are no acute bony findings. IMPRESSION: Normal bowel gas pattern.
[2018-10-14] MEDS ORDERED: ACETAMINOPHEN 325 MG TABLET PO ONE (23:58)
[2018-10-14] MEDS ORDERED: PREDNISONE 20 MG TABLET PO ONE (23:58)
--- NOTE | 2018-10-15 00:47 | ER Document Report ---
ED General - General Chief Complaint: Flank Pain Stated Complaint: LEFT FLANK PAIN Time Seen by Provider: 10/14/18 20:48 Primary Care Provider: OLESYA DC MD [ACTIVE STAFF] - Follow up in 3-5 days Mode of Arrival: Ambulatory Notes: Patient is a pleasant 48-year-old male who presents with complaint of a burning type pain that radiates around his left flank and goes around close his left rib. Patient was here in April with a similar pain which he thinks in the being a pinched nerve coming from his back or hip. The pain eventually went away after he was prescribed Robaxin and prednisone. He denies any recent trauma or injuries however he does work as a [employer] and says that he is constantly having to be on his feet and carry heavy things. He denies any recent fevers or infections. No known trauma. No weakness or numbness into his lower extremities. No other complaints at this time. No anterior abdominal pain. Pain is made worse with movement or coughing. TRAVEL OUTSIDE OF THE [place] IN LAST 30 DAYS: No - Related Data Allergies/Adverse Reactions: No Known Allergies Allergy (Unverified 05/10/18 09:56) Past Medical History - General Information source: Patient - Social History Smoking Status: Current Every Day Smoker Frequency of alcohol use: None Drug Abuse: None Family History: Reviewed & Not Pertinent Patient has suicidal ideation: No Patient has homicidal ideation: No - Past Medical History Cardiac Medical History: Reports: Hx Hypercholesterolemia, Hx Hypertension - Currently not taking any medications but being followed by his primary care Renal/ Medical History: Denies: Hx Peritoneal Dialysis Review of Systems - Review of Systems Notes: My Normal Review Basic REVIEW OF SYSTEMS: CONSTITUTIONAL : Denies fever, chills, or sweats. Denies recent illness. EENT: Denies eye, ear, throat, or mouth pain or symptoms. Denies nasal or sinus congestion. CARDIOVASCULAR: Denies chest pain. RESPIRATORY: Denies cough, cold, or chest congestion. Denies shortness of breath, difficulty breathing, or wheezing. GASTROINTESTINAL: Denies abdominal pain. Denies nausea, vomiting, or diarrhea. GENITOURINARY: Denies difficulty urinating, painful urination, burning, frequency, or blood in urine. MUSCULOSKELETAL: Pain is starts just to the left of the lower thoracic spine and radiates around the 12th rib to the front. SKIN: Denies rash or skin lesions. NEUROLOGICAL: Denies altered mental status or loss of consciousness. Denies headache. Denies weakness or paralysis or loss of use of either side. Denies problems with gait or speech. Denies sensory or motor loss. ALL OTHER SYSTEMS REVIEWED AND NEGATIVE. Physical Exam - Vital signs Vitals: Temp Pulse Resp BP Pulse Ox 98.3 F 80 23 H 179/101 H 97 10/14/18 20:26 10/14/18 20:26 10/14/18 20:26 10/14/18 20:26 10/14/18 20:26 - Notes Notes: General Appearance: Well nourished, alert, cooperative, no acute distress, mild to moderate obvious discomfort. Vitals: reviewed, See vital signs table. Eyes: PERRL, EOMI, Conjuctiva clear Lungs: No wheezing, No rales, No rhonci, No accessory muscle use, good air exchange bilaterally. Heart: Normal rate, Regular rythm, No murmur, no rub Rib cage. Patient has easily reproducible pain palpation along with the 12th rib on the left side. Pain follows exactly along 12th rib. He does not have any pain below or above the 12th rib. No redness or swelling. No signs of rash. No signs of shingles. Abdomen: Normal BS, soft, No rigidity, No abdominal tenderness, No guarding, no rebound, no abdominal masses, no organomegaly Extremities: strength 5/5 in all extremities, good pulses in all extremities, no swelling or tenderness in the extremities, no edema. Skin: warm, dry, appropriate color, no rash Neuro: speech clear, oriented x 3, normal affect, responds appropriately to que stions. Course - Re-evaluation Re-evalutation: 10/15/18 03:21 Patient's pain is consistent with that of what I suspect is a pinched nerve. He has burning and sharp pain that goes along the 12th rib. He only has pain to palpation only along the 12th rib. There is no pain to palpation anywhere else other than along the 12th rib. Pain is worse with taking deep breaths or twisting or moving. He has no rash or redness or swelling to suggest shingles. He has had similar pains in the past which improved with Robaxin and prednisone. I will place him on Robaxin and prednisone again as this helped him in the past. He does have a history of hypertension but does not comply. Last time he seemed Daniel his prescribed medicine which he took but never saw a primary care doctor to get it refilled. Currently does not have a headache, chest pain or shortness of breath. He said he did have some headache a few days ago but th at has since resolved. No focal weakness or numbness. I informed him the importance of making sure his blood pressure is controlled and I will prescribe him amlodipine. I will refer him to Dr. Dc which himself with primary care physician in regards to continued blood pressure management. I strongly encouraged him return to ER immediately if he has any redness or swelling along his area of pain on his left flank, or if he has worsening pain, or if he has fevers, for severe headache, chest pain, difficulty breathing, or if he feels unwell in any way. Patient agrees with plan will be discharged home. Dictation of this chart was performed using voice recognition software; therefore, there may be some unintended grammatical errors. - Vital Signs Vital signs: Temp Pulse Resp BP Pulse Ox 97.8 F 80 20 158/97 H 99 10/15/18 01:01 10/14/18 20:26 10/15/18 01:01 10/15/18 01:01 10/15/18 01:01 - Laboratory Result Diagrams: 10/15/18 00:32 Discharge - Discharge Clinical Impression: Flank pain Condition: Good Disposition: HOME, SELF-CARE Additional Instructions: Based on the character of your pain and location I suspect you may have a pinc hed nerve that is going underneath your 12th rib. This is likely causing your pain. The nerve may be pinching your back. I do not suspect a kidney stone. Your kidney function is normal. Urine did not show any blood or signs of infection. We will place you on prednisone for next several days. We will also prescribe Robaxin as this has helped in the past. Please be aware that Robaxin may make you little bit sleepy so please do not work when taking it. Please follow-up with primary care doctor in regards to your high blood pressure. I will start on a medicine called amlodipine. Please take this every day. Please have a low threshold to return to ER if you are having signs of complications of your high blood pressure such as severe headache, chest pain, difficulty breathing, or speech, or weakness or numbness into your extremities. Prescriptions: RX: Amlodipine Besylate [Norvasc 5 mg Tablet] 5 mg PO DAILY #30 tablet Methocarbamol [Robaxin] 500 mg PO BID PRN #20 tablet PRN Reason: pain RX: Prednisone [Deltasone 10 mg Tablet] 10 mg PO ASDIR PRN #20 tablet PRN Reason: Forms: Return to Work Referrals: OLESYA DC MD [ACTIVE STAFF] - Follow up in 3-5 days
[2018-10-15] MEDS ORDERED: AMLODIPINE BESYLATE 10 MG TABLET PO ONE (01:00)
[2018-10-15 01:05] LABS: ANION GAP 12 (5-19); BLOOD UREA NITROGEN 17 mg/dL (7-20); CALCIUM 9.5 mg/dL (8.4-10.2); CARBON DIOXIDE 25 mmol/L (22-30); CHLORIDE 106 mmol/L (98-107); GLUCOSE 88 mg/dL (75-110); POTASSIUM 3.9 mmol/L (3.6-5.0)
[2018-10-15 01:29] VITALS: BP 158/97
== END 2018-10-15 01:29 | disposition home or self-care (01) ==
LOC: ER 20:17
DX: R10.9 Unspecified abdominal pain (principal); R07.81 Pleurodynia; I10 Essential (primary) hypertension; T50.906A Underdosing of unspecified drugs, medicaments and biological substances, initial encounter; Z91.128 Patient's intentional underdosing of medication regimen for other reason; Z91.14 Patient's other noncompliance with medication regimen; F17.200 Nicotine dependence, unspecified, uncomplicated
CPT/HCPCS: 99284; 36415; 80048; 81001; 74018; J7512